=== PATIENT | male | born 1995 | race Caucasian/White ===

== ENCOUNTER 2018-09-01 00:31 | Emergency (ER) | payer SELFPAY ==
[~2018-09-01] VITALS: Ht 162.6 cm; Wt 76.5 kg
[2018-09-01 00:33] VITALS: BP 133/75; PULSE 66; RESP 16; Ht 162.6 cm; Wt 76.5 kg
--- NOTE | 2018-09-01 01:48 | ERD ---
ER Documentation Chief Complaint Chief Complaint pt has rash on hands and legs after picking up dirty rugs HPI This is a 23-year-old male who presents emergency department with complaints of rashes to wrists, inner thighs, bilateral lower extremities for about a week. Stated it started after picking up dirty rugs. Stated his coworkers has this too. States that the lesions/rashes are so itchy and is worse at night. Denies headache, head injury, loss of consciousness, dizziness, neck pain, neck stiffness, throat pain, difficulty swallowing, difficulty breathing lying flat, shoulder pain, chest pain, back pain, abdominal pain, nausea, vomiting, constipation, diarrhea, urinary symptoms, loss of bowel and bladder control, trauma, injury, falls, difficulty walking due to pain, numbness or tingling sensation, calf pain, recent travel, recent major surgery in the last 3 weeks, calf pain, recent long travel, recent exposure to any illness, recent antibiotic use in the last 3 months, fever, chills, seizures. Past medical history: Surgical history: Social: Denies smoking, use of alcoholic beverages, use of illegal drugs. ROS All systems reviewed and are negative except as per history of present illness. Medications Home Meds Active Scripts Permethrin* (Elimite*) 5% Cr, 1 APPLIC TOP ONCE, #2 TUB May repeat in 14 days. Prov:PASILAMILTON LUXAR F 09/01/18 Diphenhydramine Hcl* (Benadryl*) 25 Mg Cap, 25 MG PO Q6 PRN for ITCHING/RASH, #30 TAB Prov:ELAINEILASHMUEL LUX F 09/01/18 Prednisone* (Prednisone*) 20 Mg Tab, 40 MG PO DAILY for 4 Days, TAB Prov:PASILABAN,MILTONAR F 09/01/18 Allergies Allergies: Coded Allergies: Penicillins (Verified Allergy, Unknown, 09/01/18) PMhx/Soc History of Surgery: No (NO MEDICAL CONDITIONS OR SURGICAL HISTORY) Hx Alcohol Use: No Hx Substance Use: No Hx Tobacco Use: No Physical Exam Vitals Vital Signs Date Temp Pulse Resp B/P (MAP) Pulse Ox O2 O2 Flow FiO2 Time Delivery Rate 09/01/18 98.3 66 16 133/75 100 00:33 (94) Physical Exam Const: No acute distress Head: Atraumatic Eyes: Normal Conjunctiva ENT: Normal External Ears, Nose and Mouth. Throat/lips: No lip swelling. No tongue swelling. No drooling. Able to control tongue movement. No facial swelling. Uvula is midline and nondisplaced. Tonsils are +1 bilaterally without redness and without exudates. Tolerating secretions. Patent airway. Speaks full and clear sentences. No tripoding. Neck: Full range of motion. No meningismus. Resp: Clear to auscultation bilaterally Cardio: Regular rate and rhythm, no murmurs Abd: Soft, non tender, non distended. Normal bowel sounds Skin: No petechiae or rashes. Multiple excoriated lesions to bilateral wrists, left inner thigh, bilateral lower extremities, with linear burrows. Consistent with scabies. No vesicular lesions. Back: No midline or flank tenderness Ext: No cyanosis, or edema Neur: Awake and alert. No neurological deficit. Psych: Normal Mood and Affect Results 24 hrs Current Medications Medications Dose Sig/Mateo Start Time Status Last (Trade) Ordered Route PRN Stop Time Admin Dose Reason Admin Prednisone 60 mg ONCE ONCE 09/01/18 DC 09/01/18 (Prednisone) PO 02:00 02:00 09/01/18 02:01 50 mg ONCE ONCE 09/01/18 DC 09/01/18 Diphenhydrami PO 02:00 01:59 ne HCl 09/01/18 02:01 (Benadryl) Famotidine 40 mg ONCE ONCE 09/01/18 DC 09/01/18 (Pepcid) PO 02:00 02:00 09/01/18 02:01 Procedures/MDM Diagnostic tests: Clinical exam. Treatment: Prednisone. Benadryl. Pepcid. Re-evaluation: Denies itchiness. Differential diagnosis I have low suspicion for chickenpox, shingles, anaphylactic shock, anaphylaxis, Mtz-Gabriel syndrome. Final diagnosis: Scabies. Rash. Prescription: Permethrin cream. Prednisone. Benadryl. Pepcid. Follow-up with PCP in the next 24-48 hours. PCP to do an allergy test. PCP to refer patient to technical sales support specialist and/or associate professor of surgery. Come back here in the emergency department for any new symptoms or any worsening symptoms. All questions and concerns were answered. Patient and family members verbalized understanding and agreed with plan of care. Hemodynamically stable on discharge. Departure Diagnosis: Primary Impression: Rash Additional Impression: Scabies Condition: Stable Additional Instructions: Follow-up with PCP in the next 24-48 hours. PCP to do an allergy test. PCP to refer patient to technical sales support specialist and/or associate professor of surgery. Come back here in the emergency department for any new symptoms or any worsening symptoms. SHMUEL FERNANDEZ September 01, 2018 01:47
[2018-09-01] MEDS ORDERED: PRED20TA PO (01:50)
[2018-09-01] MEDS ORDERED: BEN25 PO (01:50)
[2018-09-01] MEDS ORDERED: ELIM TOP (01:52)
[2018-09-01] MEDS ORDERED: predniSONE 20 MG TAB PO ONE (02:00)
[2018-09-01] MEDS ORDERED: DIPHENHYDRAMINE 50 MG CAP PO ONE (02:00)
[2018-09-01] MEDS ORDERED: FAMOTIDINE 20 MG TAB PO ONE (02:00)
== END 2018-09-01 02:26 | disposition home or self-care (01) ==
LOC: FTE 00:31
DX: B86 Scabies (principal)
CPT/HCPCS: 99283; J7512